=== PATIENT | female | born 1980 ===

== ENCOUNTER 2021-05-25 11:00 | Day surgery (SDC) | payer BC ==
[~2021-05-25 11:00] MED LIST: ceFAZolin/STERILE WATER 2 GM/20 ML SYRINGE IV NR
[2021-05-25] MEDS ORDERED: HYDROmorphone 1 MG/1 ML INJ IV PRN ×2 (12:01)
--- NOTE | 2021-05-25 12:02 | Anesthesia Day of Surgery ---
Anesthesia Day of Surgery - Day of Surgery Patient Examined: Yes Patient H&P Reviewed: Yes Patient is NPO: Yes
--- NOTE | 2021-05-25 12:03 | Anesthesia Consultation ---
Anesthesia Consult and Med Hx Date of service: 05/25/21 - Airway Anesthetic Teeth Evaluation: Chipped (LOOSE Upper left side and missing) ROM Head & Neck: Adequate Mental/Hyoid Distance: Adequate Mallampati Class: Class II Intubation Access Assessment: Good - Pre-Operative Health Status ASA Pre-Surgery Classification: ASA2 Proposed Anesthetic Plan: General - Pulmonary Hx Smoking: No Hx Asthma: Yes (INHALER PRN last used in 2019) Hx Sleep Apnea: No (GEORGIE PRE SCREEN LOW RISK) - Cardiovascular System Hx Hypertension: No - Central Nervous System Hx Psychiatric Problems: No - Endocrine Hx Non-Insulin Dependent Diabetes: Yes - Hematic Hx Anemia: No - Other Systems Hx Cancer: No Hx Obesity: Yes
[2021-05-25] MEDS ORDERED: SODIUM CHLORIDE 0.9% 1000 ML 1,000 ML IV SCH (12:15)
[2021-05-25] MEDS ORDERED: LIDOCAINE (1%) 10 MG/1 ML VIAL 20 ML MDV ONE (12:17)
[2021-05-25] MEDS ORDERED: BUPIVACAINE/PF (0.25%) 2.5 MG/ML 30 ML VIAL INFILTRATI ONE ×2 (12:17→13:03)
[2021-05-25] MEDS ORDERED: propofoL 200 MG/20 ML VIAL IV ONE (12:46)
[2021-05-25] MEDS ORDERED: MIDAZOLAM 2 MG/2 ML INJ IV NR (13:00)
[2021-05-25] MEDS ORDERED: ONDANSETRON 4 MG/2 ML INJ IV PRN (13:00)
[2021-05-25] MEDS ORDERED: SODIUM CHLORIDE 0.9% IRR 1,500 ML BOTTLE IR ONE (13:02)
[2021-05-25] MEDS ORDERED: LIDOCAINE (1%) 10 MG/1 ML VIAL 20 ML MDV INFILTRATI ONE (13:02)
--- NOTE | 2021-05-25 13:25 | Short Stay Summary ---
Short Stay Documentation Date of service: 05/25/21 - History Principal diagnosis: right arm soft tissue mass H&P: obtained from office - Allergies and Medications Current Medications: Allergies No Known Allergies Allergy (Unverified 05/25/21 12:52) Home Medications Medication Instructions Recorded Confirmed Last Taken Type Albuterol Sulfate [Proventil Hfa] 2 puff IH PRN PRN 05/20/21 05/20/21 Unknown History Metformin HCl [metFORMIN] 1,000 mg PO BID 05/20/21 05/20/21 Unknown History Active Medications Cefazolin Sodium (Cefazolin/Sterile Water 2 Gm/20 Ml Syringe) 2 gm IV PREOP NR Stop: 05/25/21 16:00 Hydromorphone HCl (Hydromorphone 1 Mg/1 Ml Inj) 0.25 mg IV Q10MIN PRN PRN Reason: Pain, Moderate (4-6) Stop: 05/25/21 20:00 Hydromorphone HCl (Hydromorphone 1 Mg/1 Ml Inj) 0.5 mg IV Q10MIN PRN PRN Reason: Pain , Severe (7-10) Stop: 05/25/21 22:00 Sodium Chloride (Nacl 0.9% 1000 Ml) 1,000 mls @ 125 mls/hr IV DIRECT GUILLERMO Last Admin: 05/25/21 11:55 Dose: 125 mls/hr Documented by: Midazolam HCl (Midazolam 2 Mg/2 Ml Inj) 2 mg IV PREOP NR Stop: 05/25/21 23:59 Last Admin: 05/25/21 11:55 Dose: 2 mg Documented by: Ondansetron HCl (Ondansetron 4 Mg/2 Ml Inj) 4 mg IV ONCE PRN PRN Reason: Nausea And Vomiting - Brief post op/procedure progress note Date of procedure: 05/25/21 Pre-op diagnosis: right arm soft tissue mass Post-op diagnosis: other (right arm abscess) Procedure: incision and drainage of right arm abscess Anesthesia: MAC, local Findings: 2cm abscess cavity with chronic scar tissue in cavity Surgeon: BRANDON GARCIA Estimated blood loss: minimal Pathology: list (wound cultures) Specimen disposition: to lab Condition: stable - Hospital course Hospital course: Pt observed in PACU and discharged to home when criteria met - Disposition Condition at discharge: Good Disposition: 01 HOME / SELF CARE / HOMELESS Short Stay Discharge Plan Activity: no restrictions Diet: regular Wound: other (May remove dressing tomorrow and shower. Then cover area with large bandaid. Do not remove stitch.) Follow up with: SPENCER TIDWELL MD [Primary Care Provider] - 7 Days BRANDON GARCIA DO [Staff Physician] - 7 Days Prescriptions: cephALEXin [Keflex] 500 mg PO Q12HR #10 cap Ibuprofen [Motrin 800 MG tab] 800 mg PO Q8HR PRN #30 tablet PRN Reason: Pain , Severe (7-10)
[2021-05-25 16:10] VITALS: BP 123/62
--- NOTE | 2021-05-25 17:13 | Post Anesthesia Evaluation ---
- Post Anesthesia Evaluation Patient Participated: Yes Airway Patent: Yes Stable Respiratory Function: Yes Nausea/Vomiting: No Temp > 96.8F: Yes Pain Manageable: Yes Adequeate Hydration: Yes Anesthesia Complications: No Block Receding Appropriately: Not Applicable Patient on Ventilator: No
--- NOTE | 2021-05-31 08:21 | Operative Report ---
Operative Report Operative Report: Date of procedure: 05/25/21 Pre-op diagnosis: right arm soft tissue mass Post-op diagnosis: other (right arm abscess) Procedure: incision and drainage of right arm abscess Anesthesia: MAC, local Findings: 2cm abscess cavity with chronic scar tissue in cavity Surgeon: BRANDON GARCIA Estimated blood loss: minimal Pathology: list (wound cultures) Specimen disposition: to lab Condition: stable - Hospital course Hospital course: Pt observed in PACU and discharged to home when criteria met HPI and indication: Patient is a 41-year-old female who presented to the surgery clinic with complaints of a soft tissue mass of her right upper arm. The patient has a history of diabetes and is known to inject the area of her upper arms for insulin. She states that it started 2 weeks prior and it become more tender. Her tried to massage it which did make it better and smaller however then it returned even larger and more tender. On exam the area was felt to be a soft tissue mass. It was recommended that this be excised due to symptoms. All risks, benefits, alternatives to surgery were discussed and consent was obtained. Procedure in detail: Patient was identified in the preoperative area and the operative site marked. She was taken back to the operating room and placed on the operating room table in supine position. After anesthesia was induced the right upper arm was prepped and draped in usual sterile fashion a timeout performed. Local anesthetic was infiltrated into the skin at the intended incision site. An incision was made over the soft tissue mass using a 15 blade and there was immediate drainage of purulent fluid. Approximately 3 cc of pus was evacuated. Cultures were obtained. The wound was evaluated and there was an empty abscess cavity. No soft tissue mass was identified. The area was then irrigated with saline and hemostasis very carefully ensured. The wound was closed with a single interrupted 3-0 nylon stitch. This was covered with a 4 x 4 gauze and Medipore tape. At the end of the case, all sponge, instrument, sharp counts were correct x2. The patient was awoken from anesthesia and taken to PACU in stable condition.
== END 2021-05-25 11:01 | disposition home or self-care (01) ==
LOC: OR 11:00
PROVIDERS: ATTEND Surgery
DX: D17.21 Benign lipomatous neoplasm of skin and subcutaneous tissue of right arm (principal); J45.909 Unspecified asthma, uncomplicated; E11.9 Type 2 diabetes mellitus without complications; E66.9 Obesity, unspecified; Z79.84 Long term (current) use of oral hypoglycemic drugs; Z79.899 Other long term (current) drug therapy; Z98.890 Other specified postprocedural states; Z20.822 Contact with and (suspected) exposure to COVID-19
CPT/HCPCS: 10060; 81025; 82962; 87075; 87116; J0690; J1170; J2250; J2704; J7030; U0003

== ENCOUNTER 2022-01-17 08:45 | Outpatient (CLI) | payer BC ==
[2022-01-17 12:12] LABS: Hematocrit 35.4 % (30.3-42.9); Hemoglobin 11.8 gm/dl (10.1-14.3); Mean Corpuscular Volume 77 fl (79-97); Red Blood Count 4.61 M/mm3 (3.65-5.03)
[2022-01-17 12:13] LABS: Basophils # (Auto) 0.1 K/mm3 (0.0-0.1); Basophils % (Auto) 1.1 % (0.0-1.8); Eosinophils # (Auto) 0.2 K/mm3 (0.0-0.4); Eosinophils % (Auto) 1.9 % (0.0-4.3); Lymphocytes # (Auto) 2.6 K/mm3 (1.2-5.4); Lymphocytes % (Auto) 28.2 % (13.4-35.0); Mean Corpuscular HGB Conc 33 % (30-34); Mean Platelet Volume 9.2 fl (6-12); Monocytes # (Auto) 0.4 K/mm3 (0.0-0.8); Monocytes % (Auto) 4.4 % (0.0-7.3); Platelet Count 270 K/mm3 (140-440); Red Cell Distribution Width 15.1 % (13.2-15.2)
[2022-01-17 12:27] LABS: Iron 43 ug/dL (37-170); Total Iron Binding Capacity 351 mcg/dL (250-450)
== END 2022-01-17 08:46 | disposition home or self-care (01) ==
LOC: LABHHL 08:45
PROVIDERS: ATTEND Internal Medicine
DX: D64.9 Anemia, unspecified (principal); E11.9 Type 2 diabetes mellitus without complications
CPT/HCPCS: 36415; 82728; 83036; 83550; 85025